=== PATIENT | female | born 1955 | race Caucasian/White ===

== ENCOUNTER 2019-12-21 22:47 | Emergency (ER) | payer OTHER ==
[~2019-12-21] VITALS: Ht 167.6 cm; Wt 56.0 kg
[2019-12-21] MEDS ORDERED: IBUPROFEN 600MG TABLET PO ONE (23:30)
[2019-12-22 01:03] VITALS: BP 154/79
== END 2019-12-22 01:24 | disposition home or self-care (01) ==
LOC: ER 22:47
DX: S83.92XA Sprain of unspecified site of left knee, initial encounter (principal); E11.9 Type 2 diabetes mellitus without complications; W18.30XA Fall on same level, unspecified, initial encounter; Y93.89 Activity, other specified; Y92.89 Other specified places as the place of occurrence of the external cause; Y99.8 Other external cause status
CPT/HCPCS: 73564; 99283